=== PATIENT | female | born 1980 | race Caucasian/White ===

== ENCOUNTER 2016-08-09 16:12 | Emergency (ER) | payer BC ==
[~2016-08-09] VITALS: Ht 160 cm; Wt 55.9 kg
[2016-08-09 16:24] VITALS: BP 111/72
[2016-08-09] MEDS ORDERED: NORCO 5/3251 TABLET PO (18:55)
== END 2016-08-09 19:24 | disposition home or self-care (01) ==
LOC: EME 16:12
PROC: 2W3DX1Z Immobilization of Left Lower Arm using Splint (ICD-10-PCS; principal; 2016-08-09)
DX: S52.592A Other fractures of lower end of left radius, initial encounter for closed fracture (principal); V00.311A Fall from snowboard, initial encounter; Y93.23 Activity, snow (alpine) (downhill) skiing, snowboarding, sledding, tobogganing and snow tubing
CPT/HCPCS: 73110; 99281; 99284